=== PATIENT | male | born 1970 | race Caucasian/White ===

== ENCOUNTER 2018-05-03 22:09 | Observation (INO) ==
--- NOTE | 2018-05-03 23:01 | ED ---
HPI General Chief Complaint: Chest Pain Stated Complaint: swollen legs, feet and a sore Time Seen by Provider: 05/03/18 22:38 History of Present Illness HPI Narrative: Patient is a 48-year-old male who is coming in saying he is been living in his car he is having worsening edema in both his legs bilaterally he is a chronic situation he is to see Dr. Padron but he is run out of insurance and has not been able to see . for over a year he is morbidly obese with severe edematous legs possibly adipose tissue as well as lymphedema possibly peripheral vascular disease due to the obesity of his legs and his abdomen compressing his veins he now is complaining of a right distal tibia ulcer that is started his legs are chronically weeping he says and they itch so much that he scratched and made a hole and now it is ulcerating and severely painful Related Data Home Medications Medication Instructions Recorded Confirmed No Known Home Medications 05/04/18 05/04/18 Previous Rx's Medication Instructions Recorded albuterol sulfate [Ventolin HFA] 2 puff INH Q4H PRN #1 inhaler 05/06/18 budesonide-formoterol [Symbicort] 1 puff INH BID #1 inhaler 05/06/18 cephalexin 500 mg PO Q8HR #18 cap 05/06/18 furosemide 20 mg PO DAILY #30 tab 05/06/18 gabapentin 100 mg PO TID #90 cap 05/06/18 Allergies Allergy/AdvReac Type Severity Reaction Status Date / Time No Known Allergies Uncoded 08/18/10 16:35 Review of Systems ROS: all other systems reviewed are negative [facility] Social History Social History Substance History: No History of Abuse Second Hand Smoke Exposure: Yes Smoking Status: Light tobacco smoker Tobacco Type: Cigarettes How Often Do You Have a Drink Containing Alcohol: Monthly or less Immunization History Tetanus Immunization: Unsure Exam Narrative Exam Narrative: GENERAL: morbid obesity abdo and lower extremites bilateral SKIN: Warm and dry.skin erosion of his right distal tibial anterior serrano 7 cm area oozing serous fluid HEAD: Atraumatic. Normocephalic. EYES: Pupils equal and round. No scleral icterus. No injection or drainage. ENT: No nasal bleeding or discharge. Mucous membranes pink and moist. NECK: Trachea midline. No JVD. CARDIOVASCULAR: Regular rate and rhythm. RESPIRATORY: No accessory muscle use. Clear to auscultation. Breath sounds equal bilaterally. GASTROINTESTINAL: Abdomen morbidly obese MUSCULOSKELETAL: Extremities obese edema to lower legs with 7 cm erosion to distal leg oozing transudate . NEUROLOGICAL: Awake and alert. No obvious cranial nerve deficits. Motor grossly within normal limits. Five out of 5 muscle strength in the arms and legs. Normal speech. PSYCHIATRIC: Appropriate mood and affect; insight and judgment normal. Course Initial Documented Vital Signs Temperature 97.4 F L 05/03/18 22:18 Pulse Rate 78 05/03/18 22:18 Respiratory Rate 24 05/03/18 22:18 Blood Pressure 167/97 H 05/03/18 22:18 Pulse Oximetry 98 05/03/18 22:18 Last Documented Vital Signs Temperature 97.6 F 05/06/18 09:18 Pulse Rate 80 05/06/18 09:18 Respiratory Rate 18 05/06/18 09:18 Blood Pressure 133/96 H 05/06/18 09:18 Pulse Oximetry 99 05/06/18 09:18 Medical Decision Making MDM Narrative Medical decision making narrative: pt has 7 cm erosion with erythema and cellultis to lower right leg admit for iv antibiotics and wound culture Medical Screen Exam Complete: Yes Emergency Medical Condition: Yes Differential Diagnosis Differential Diagnosis: chronic edema with transudate weeping across legs vs edema of PVD vs cellulitis vs otehr Lab Data Result diagrams: 05/05/18 06:10 05/05/18 06:10 Lab Results 05/03/18 05/03/18 05/03/18 Range/Units 23:47 23:47 23:47 WBC 8.9 (4.0-11.0) th/mm3 RBC 5.07 (4.50-5.90) mil/mm3 Hgb 15.3 (13.0-17.0) gm/dL Hct 44.9 (39.0-51.0) % MCV 88.5 (80.0-100.0) fL MCH 30.1 (27.0-34.0) pg MCHC 34.1 (32.0-36.0) % RDW 14.7 (11.6-17.2) % Plt Count 253 (150-450) th/mm3 MPV 8.9 (7.0-11.0) fL Neut % (Auto) 68.4 (16.0-70.0) % Lymph % (Auto) 16.1 (9.0-44.0) % Dawson % (Auto) 9.1 H (0.0-8.0) % Eos % (Auto) 5.7 H (0.0-4.0) % Baso % (Auto) 0.7 (0.0-2.0) % Neut # (Auto) 6.1 (1.8-7.7) th/mm3 Lymph # (Auto) 1.4 (1.0-4.8) th/mm3 Dawson # (Auto) 0.8 (0.0-0.9) th/mm3 Eos # (Auto) 0.5 H (0.0-0.4) th/mm3 Baso # (Auto) 0.1 (0.0-0.2) th/mm3 WBC Differential . Differential Comment Auto diff final Sodium 131 L (136-145) meq/L Potassium 3.2 L (3.5-5.1) meq/L Chloride 93 L (98-107) meq/L Carbon Dioxide 29.7 (21.0-32.0) meq/L Anion Gap 8 (5-15) meq/L BUN 17 (7-18) mg/dL Creatinine 1.05 (0.60-1.30) mg/dL Estimated GFR 76 L (>89) mL/min Random Glucose 114 H (74-106) mg/dL Hemoglobin A1c (4.3-6.0) % Lactic Acid 1.2 (0.4-2.0) mmol/L Calcium 8.3 L (8.5-10.1) mg/dL Magnesium (1.5-2.5) mg/dL Total Bilirubin 0.5 (0.2-1.0) mg/dL AST 27 (15-37) U/L ALT 30 (12-78) U/L Alkaline Phosphatase 110 (45-117) U/L Total Protein 7.4 (6.4-8.2) g/dL Albumin 3.4 (3.4-5.0) g/dL 05/05/18 05/05/18 05/05/18 Range/Units 06:10 06:10 06:12 WBC 5.8 (4.0-11.0) th/mm3 RBC 5.13 (4.50-5.90) mil/mm3 Hgb 15.3 (13.0-17.0) gm/dL Hct 45.5 (39.0-51.0) % MCV 88.7 (80.0-100.0) fL MCH 29.7 (27.0-34.0) pg MCHC 33.5 (32.0-36.0) % RDW 14.5 (11.6-17.2) % Plt Count 220 (150-450) th/mm3 MPV 9.1 (7.0-11.0) fL Neut % (Auto) 66.7 (16.0-70.0) % Lymph % (Auto) 16.3 (9.0-44.0) % Dawson % (Auto) 9.9 H (0.0-8.0) % Eos % (Auto) 6.2 H (0.0-4.0) % Baso % (Auto) 0.9 (0.0-2.0) % Neut # (Auto) 3.9 (1.8-7.7) th/mm3 Lymph # (Auto) 0.9 L (1.0-4.8) th/mm3 Dawson # (Auto) 0.6 (0.0-0.9) th/mm3 Eos # (Auto) 0.4 (0.0-0.4) th/mm3 Baso # (Auto) 0.1 (0.0-0.2) th/mm3 WBC Differential . Differential Comment Auto diff final Sodium 134 L (136-145) meq/L Potassium 3.3 L (3.5-5.1) meq/L Chloride 95 L (98-107) meq/L Carbon Dioxide 29.5 (21.0-32.0) meq/L Anion Gap 10 (5-15) meq/L BUN 11 (7-18) mg/dL Creatinine 0.80 (0.60-1.30) mg/dL Estimated GFR Greater than 89 (>89) mL/min Random Glucose 93 (74-106) mg/dL Hemoglobin A1c 5.4 (4.3-6.0) % Lactic Acid (0.4-2.0) mmol/L Calcium 8.7 (8.5-10.1) mg/dL Magnesium 2.0 (1.5-2.5) mg/dL Total Bilirubin (0.2-1.0) mg/dL AST (15-37) U/L ALT (12-78) U/L Alkaline Phosphatase (45-117) U/L Total Protein (6.4-8.2) g/dL Albumin (3.4-5.0) g/dL Imaging Data Radiologist's impression: Venous Doppler Study 05/03/18 22:46 CONCLUSION: No evidence of deep venous thrombosis. Discharge Plan Discharge Disposition Patient Disposition: 30 Still Patient Discharge Condition Condition: Good Discharge Order Discharge Orders: Discharge Order (Routine); Ordered 05/06/18 Ordered By: Mono Hong Discharge Details Diagnosis: Abscess or cellulitis of ankle Physicians Team ED Provider: Chemo Carmen Primary Care Provider: Primary Care Maria Elena Espinosa Attending Provider: Mono Hong Status ED Status: Left Department Discharge Information Discharge Date/Time: 05/04/18 06:02
--- NOTE | 2018-05-03 23:59 | US ---
EXAM DATE: 05/03/2018 10:46 PM EDT AGE/SEX: 48 years / Male INDICATIONS: Bilateral leg pain and swelling. CLINICAL DATA: This is the patient's initial encounter. Patient reports that signs and symptoms have been present for 4 - 6 months and indicates a pain score of 6/10. MEDICAL/SURGICAL HISTORY: Chronic obstructive pulmonary disease. None. COMPARISON: No prior exams available for comparison. TECHNIQUE: Venous ultrasound of both lower extremities was performed from the inguinal ligament to t he proximal calf. Real-time, color Doppler and spectral tracing, compression and augmentation techni ques were used. FINDINGS: Right Leg: Normal compression of the deep venous system from the inguinal region to the proximal ronnie f. No echogenic clot is seen. Normal response of the venous system to augmentation and respiration. Left Leg: Normal compression of the deep venous system from the inguinal region to the proximal calf . No echogenic clot is seen. Normal response of the venous system to augmentation and respiration. Other: None. CONCLUSION: No evidence of deep venous thrombosis. Electronically signed by: Albert Mann MD 05/03/2018 11:58 PM EDT
[2018-05-04 00:06] LABS: Baso # (Auto) 0.1 th/mm3 (0.0-0.2); Baso % (Auto) 0.7 % (0.0-2.0); Eos # (Auto) 0.5 th/mm3 (0.0-0.4); Eos % (Auto) 5.7 % (0.0-4.0); Hematocrit 44.9 % (39.0-51.0); Hemoglobin 15.3 gm/dL (13.0-17.0); Lymph # (Auto) 1.4 th/mm3 (1.0-4.8); Lymph % (Auto) 16.1 % (9.0-44.0); Mean Corpuscular HGB Conc 34.1 % (32.0-36.0); Mean Corpuscular Hemoglobin 30.1 pg (27.0-34.0); Mean Corpuscular Volume 88.5 fL (80.0-100.0); Mean Platelet Volume 8.9 fL (7.0-11.0); Mono # (Auto) 0.8 th/mm3 (0.0-0.9); Mono % (Auto) 9.1 % (0.0-8.0); Neut # (Auto) 6.1 th/mm3 (1.8-7.7); Neut % (Auto) 68.4 % (16.0-70.0); Platelet Count 253 th/mm3 (150-450); Red Blood Count 5.07 mil/mm3 (4.50-5.90); Red Cell Distribution Width 14.7 % (11.6-17.2); White Blood Count 8.9 th/mm3 (4.0-11.0)
[2018-05-04 00:20] LABS: Alanine Aminotransferase 30 U/L (12-78); Alkaline Phosphatase 110 U/L (45-117); Total Protein 7.4 g/dL (6.4-8.2)
[2018-05-04 00:23] LABS: Albumin 3.4 g/dL (3.4-5.0); Anion Gap 8 meq/L (5-15); Aspartate Aminotransferase 27 U/L (15-37); Blood Urea Nitrogen 17 mg/dL (7-18); Calcium 8.3 mg/dL (8.5-10.1); Carbon Dioxide 29.7 meq/L (21.0-32.0); Chloride 93 meq/L (98-107); Glomerular Filtration Rate 76 mL/min (>89); Glucose,Random 114 mg/dL (74-106); Sodium 131 meq/L (136-145)
[2018-05-04 00:24] LABS: Potassium 3.2 meq/L (3.5-5.1)
[2018-05-04] MEDS ORDERED: Ketorolac Inj 30 MG/ML (IVP) Vial IV.PUSH ONE (00:35)
[2018-05-04] MEDS ORDERED: ceFAZolin 2 GM Premix Inj 2 GM/50 ML PIGGYBACK IV.SIG ONE (03:15)
[2018-05-04] MEDS ORDERED: Diphtheria/Tetanus/Pertussis Vaccine Inj 0.5 ML Syringe IM ONE (03:16)
[2018-05-04] MEDS ORDERED: Acetaminophen 325 MG Tablet PO PRN (04:35)
[2018-05-04] MEDS: Heparin - SQ 10,000 UNITS/ML Vial SQ SCH ×2 (05:04→18:44)
--- NOTE | 2018-05-04 16:30 | P.PNWCN ---
Wound Care Nurse Consult Description: Recived wound management consult from Tomas[facility]SHINE Communicated with: MEGAN Delcid CDU and Doctor Recommendation: Change dressing as follows every 3 days or PRN if saturated or dislodged: After removing dressing, Apply lidocaine ointment to wound and leave ointment in place for ~5 minutes. Then cleanse wound to RLE with wound cleanser and pat dry. Apply Optifoam AG covering entire wound and secure with ABD pad ,rolled gauze and elastic wrap. Wound/Pressure Injury - Patient Status Premedicated for Pain Prior to Dressing Change: No - Wound Right Lower Leg Wound Assessment: Ongoing Wound Type: Traumatic Wound Requested from Provider a Wound Care Consult: Yes (Wound care saw patient today) Length (cm): 13 (~13cm) Width (cm): 22 (~22cm) Depth (cm): 0.1 (~<0.1cm) Wound Bed Appearance: Red Wound Bed Appearance: 100% red non granulation tissue. Periwound presents with hyperkeratotic tissue, dried yellow/brown exudate and scattered partial thickness wounds. Surrounding Tissue Temperature: Warm Drainage Description: Serosanguinous Drainage Amount: Scant Drainage Odor: Slight Odor Dressing Status: Changed Cleansing Solution: Saline Primary Dressing: Optifoam AG Cover Dressing: ABD pad Wound Dressing Change Date: 05/04/18 Wound Margin Description: Wound margins are poorly defined and open - Additional Information Patient seen for wound management of wound to RLE. Upon machine sign writer's arrival patient is laying in bed and appears morbidly obese. Patinet is ambulatory and Alert and oriented x 4. Bilateral lower extremities present with hard non pitting edema worse on R lower leg than on the L. Removed saturated dressing to R lower leg to reveal open wound to R lower leg. Wound description and measurement are noted above. Periwound presents with hyperkeratotic tissue, scaly dry skin and dried brown/ yellow exudate. Applied shaving cream to BLE for dry scaly skin and applied warm moist towel over bilateral lower legs and left in place for ~5 minutes before rinsing and removing shaving cream. Wound to R lower leg was cleansed with normal saline and patted dry. Applied 3 Optifoam AG non adhesive dressings to R lower leg wound, and secured with ABD pad, rolled gauze, tape and elastic wrap. Patient has pain after dressing change and wound assessment. MEGAN kimball medicate patient for pain.
[2018-05-04] MEDS ORDERED: Naloxone Inj 0.4 MG/ML Vial IV.PUSH PRN (16:45)
[2018-05-04] MEDS ORDERED: Lidocaine 5% Oint 37 GM Tube TOPICAL PRN (16:51)
--- NOTE | 2018-05-04 17:33 | P.HP ---
History of Present Illness Service: Hospitalist Primary Care Physician: No Primary Care Physician Chief Complaint: Leg wound History of Present Illness: Patient is a 48-year-old male who presented to the emergency room after developing worsening edema in his lower legs which led to an ulcer from excessive scratching on the right serrano. He is homeless and lives in his van care. He does report a past medical history of COPD for which he took Symbicort at one time however he can no longer afford it. He tells me that the swelling in his legs has been for most of his life and that it is worse right now because he is forced to sleep sitting up in a chair in his van. He is also complaining of pins and needles feeling in his feet. Tells me that he caused the ulcer scratching through his jeans and did not even realize it. Currently denies any shortness of breath or chest pain. No nausea vomiting or diarrhea. - Diagnosis (1) Venous stasis ulcer (2) Neuropathy (3) PVD (peripheral vascular disease) (4) COPD (chronic obstructive pulmonary disease) (5) Abscess or cellulitis of ankle Review of Systems All other systems reviewed negative except as stated in [facility]PI [facility] - History History Provided By: Patient, Medical Record - Medical History Medical History: Medical History (Last Updated 05/04/18 @ 17:39 by JONG Connell) Elbow fracture, left (Resolved) Acquired lymphedema of lower extremity COPD (chronic obstructive pulmonary disease) Kidney calculus - Family History Family History: Family History (Last Reviewed 05/04/18 @ 17:37 by JONG Connell) Mother Diabetes Father Cancer - Social History I have reviewed the patient's Social History: Yes - Tobacco History Second Hand Smoke Exposure: Yes Tobacco Use In Past 30 Days: Yes Smoking Status: Light tobacco smoker Tobacco Type: Cigarettes - Alcohol History How Often Do You Have a Drink Containing Alcohol: Monthly or less - Substance Use History Substance History: No History of Abuse - Travel History Recent Travel in the [place] Within the Last 8 Weeks: No Recent Travel Out of the Country Within the Last 8 Weeks: No - Immunization History Tetanus Immunization: Unsure Medications and Allergies Active Medications: Active Medications Acetaminophen (Tylenol) 650 mg PO Q4H PRN PRN Reason: Temp > 100.4 Hydrocodone Bitart/Acetaminophen (Flinton 5/325) 1 tab PO Q4H PRN PRN Reason: PAIN SCALE 3 TO 5 Last Admin: 05/04/18 17:04 Dose: 1 tab Budesonide/Formoterol Fumarate (Symbicort 80/4.5 Mcg Inh) 1 puff INH BID [facility] Furosemide (Lasix) 40 mg PO DAILY [facility] Gabapentin (Neurontin) 100 mg PO TID [facility] Heparin Sodium (Porcine) (Heparin Inj) 5,000 units SQ Q12H CHARMAINE Last Admin: 05/04/18 05:04 Dose: 5,000 units Cefazolin Sodium 1,000 mg/ (Sodium Chloride) 100 mls @ 200 mls/hr IV.SIG Q8H [facility] Last Infusion: 05/04/18 13:45 Dose: Infused Lidocaine HCl (Xylocaine 5% Oint) 1 applicatio TOPICAL Q8H PRN PRN Reason: Acute Pain Naloxone HCl (Narcan Inj) 0.4 mg IV.PUSH UNSCH PRN PRN Reason: SEE LABEL COMMENTS Ondansetron HCl (Zofran Inj) 4 mg IV.PUSH Q6H PRN PRN Reason: NAUSEA OR VOMITING Potassium Chloride (Kcl) 10 meq PO DAILY [facility] Allergies Allergy/AdvReac Type Severity Reaction Status Date / Time No Known Allergies Uncoded 08/18/10 16:35 Home Medications Medication Instructions Recorded Confirmed Type No Known Home Medications 05/04/18 05/04/18 History Exam Vital signs: Vital Signs 05/03/18 22:18 05/04/18 02:20 05/04/18 06:29 Temperature 97.4 F L 98.5 F Pulse Rate 78 65 60 Respiratory Rate 24 18 20 Blood Pressure 167/97 H 123/68 123/80 Pulse Oximetry 98 98 99 05/04/18 07:31 05/04/18 12:00 05/04/18 16:00 Temperature 98.1 F 98.2 F Pulse Rate 57 L 55 L 71 Respiratory Rate 18 20 20 Blood Pressure 136/73 143/69 H 142/102 H Pulse Oximetry 99 100 100 Intake & Output 05/03/18 05/04/18 05/04/18 18:59 06:59 18:59 Intake Total 50 / 50 100 / 100 Balance 50 / 50 100 / 100 Weight 181.437 kg 181.437 kg Intake: IV 50 / 50 100 / 100 Ancef 2 GM Premix Inj 2 gm In 50 / 50 50 ml @ 100 mls/hr IV.SIG ONCE ONE Rx#:[id number] Ancef Inj 1,000 MG In NS Inj 100 / 100 100 ML @ 200 mls/hr IV.SIG Q8H [facility] Rx#:[id number] Other: Date of Last Bowel Movement 05/03/18 Weight On Admission 181.437 kg Narrative: GENERAL: Obese, well-developed adult male in no obvious distress. SKIN: Warm and dry. Ulcer on right serrano that is draining serosanguineous fluid. Darkened, thick skin bilateral lower legs. HEAD: Atraumatic. Normocephalic. CARDIOVASCULAR: Regular rate and rhythm. RESPIRATORY: No accessory muscle use. Clear to auscultation. Breath sounds equal bilaterally. GASTROINTESTINAL: Abdomen soft, non-tender, non-distended. Positive bowel sounds. MUSCULOSKELETAL: Bilateral lower legs with significant edema from knee to toes + 3. No obvious deformities. NEUROLOGICAL: Awake and alert. No obvious cranial nerve deficits. Motor grossly within normal limits. Normal speech. PSYCHIATRIC: Appropriate mood and affect; insight and judgment good. Results - Labs CBC & Chem 7: 05/03/18 23:47 05/03/18 23:47 Labs: Laboratory Results - last 24 hr 05/03/18 05/03/18 05/03/18 23:47 23:47 23:47 WBC 8.9 RBC 5.07 Hgb 15.3 Hct 44.9 MCV 88.5 MCH 30.1 MCHC 34.1 RDW 14.7 Plt Count 253 MPV 8.9 Neut % (Auto) 68.4 Lymph % (Auto) 16.1 Coal % (Auto) 9.1 H Eos % (Auto) 5.7 H Baso % (Auto) 0.7 Neut # (Auto) 6.1 Lymph # (Auto) 1.4 Coal # (Auto) 0.8 Eos # (Auto) 0.5 H Baso # (Auto) 0.1 WBC Differential . Differential Comment Auto diff final Sodium 131 L Potassium 3.2 L Chloride 93 L Carbon Dioxide 29.7 Anion Gap 8 BUN 17 Creatinine 1.05 Estimated GFR 76 L Random Glucose 114 H Lactic Acid 1.2 Calcium 8.3 L Total Bilirubin 0.5 AST 27 ALT 30 Alkaline Phosphatase 110 Total Protein 7.4 Albumin 3.4 - Imaging Impressions Venous Doppler Study 05/03/18 22:46 CONCLUSION: No evidence of deep venous thrombosis. Caprini VTE Risk Assessment Caprini VTE Risk Assessment: Moderate/High Risk (score >= 2) Caprini Risk Assessment Model: Point Value = 1 Point Value = 2 Point Value = 3 Point Value = 5 Age 41-60 Minor surgery BMI > 25 kg/m2 Swollen legs Varicose veins or History of unexplained or recurrent spontaneous Oral contraceptives or hormone replacement Sepsis (< 1 month) Serious lung disease, including pneumonia (< 1 month) Abnormal pulmonary function Acute myocardial infarction Congestive heart failure (< 1 month) History of inflammatory bowel disease Medical patient at bed rest Age 61-74 Arthroscopic surgery Major open surgery (> 45 min) Laparoscopic surgery (> 45 min) Malignancy Confined to bed (> 72 hours) Immobilizing plaster cast Central venous access Age >= 75 History of VTE Family history of VTE Factor V Leiden Prothrombin [id number] Lupus anticoagulant Anticardiolipin antibodies Elevated serum homocysteine Heparin-induced thrombocytopenia Other congenital or acquired thrombophilia Stroke (< 1 month) Elective arthroplasty Hip, pelvis, or leg fracture Acute spinal cord injury (< 1 month) Prophylaxis Regimen: Total Risk Factor Score Risk Level Prophylaxis Regimen 0-1 Low Early ambulation 2 Moderate Order ONE of the following: *Sequential Compression Device (SCD) *Heparin 5000 units SQ BID 3-4 Higher Order ONE of the following medications: *Heparin 5000 units SQ TID *Enoxaparin/Lovenox 40 mg SQ daily (WT < 150 kg, CrCl > 30 mL/min) *Enoxaparin/Lovenox 30 mg SQ daily (WT < 150 kg, CrCl > 10-29 mL/min) *Enoxaparin/Lovenox 30 mg SQ BID (WT < 150 kg, CrCl > 30 mL/min) AND/OR *Sequential Compression Device (SCD) 5 or more Highest Order ONE of the following medications: *Heparin 5000 units SQ TID (Preferred with Epidurals) *Enoxaparin/Lovenox 40 mg SQ daily (WT < 150 kg, CrCl > 30 mL/min) *Enoxaparin/Lovenox 30 mg SQ daily (WT < 150 kg, CrCl > 10-29 mL/min) *Enoxaparin/Lovenox 30 mg SQ BID (WT < 150 kg, CrCl > 30 mL/min) AND *Sequential Compression Device (SCD) Assessment and Plan - Assessment (1) Venous stasis ulcer Code(s): I83.009 - Varicose veins of unspecified lower extremity with ulcer of unspecified site; L97.909 - Non-pressure chronic ulcer of unspecified part of unspecified lower leg with unspecified severity Status: Acute (2) Neuropathy Code(s): G62.9 - Polyneuropathy, unspecified Status: Chronic (3) PVD (peripheral vascular disease) Code(s): I73.9 - Peripheral vascular disease, unspecified Status: Chronic (4) COPD (chronic obstructive pulmonary disease) Code(s): J44.9 - Chronic obstructive pulmonary disease, unspecified Status: Chronic (5) Abscess or cellulitis of ankle Status: Acute - Plan 48-year-old male who is currently homeless. Presents to the ED with increasing swelling in his feet and a wound to the right serrano. Past medical history includes chronic edema and COPD. Venous stasis ulcer -Wound care consulted -Continue cefazolin started in ED -Monitor cultures Chronic edema/lymphedema -Lasix plus potassium supplement; monitor kidney function and electrolytes COPD -Symbicort -As needed nebs Neuropathy -Trial gabapentin 100 mg 3 times daily. Increase if not adequate. -Denies history of diabetes, but will check A1c Hypokalemia -K initially 3.2-got 40 M EQ's replacement. Recheck in a.m. DVT prophylaxis: Heparin Discharge planning: Patient has no benefits; appreciate case management assistance Acute pain exception: This patient has normal, predicted, physiological, and time limited response to an adverse mechanical stimulus associated with surgery , trauma, or acute illness as described in my notes. There is a lack of alternative treatment options other than to include the prescribed narcotic treatment for this condition.
[2018-05-04] MEDS: Gabapentin 100 MG Capsule PO SCH (18:44)
[2018-05-04] MEDS: Budesonide-Formoterol 80/4.5 MCG 6.9 GM Inhaler INH SCH (22:18)
[2018-05-05] MEDS: Heparin - SQ 10,000 UNITS/ML Vial SQ SCH ×2 (06:00→18:19)
[2018-05-05 07:42] LABS: Baso # (Auto) 0.1 th/mm3 (0.0-0.2); Baso % (Auto) 0.9 % (0.0-2.0); Eos # (Auto) 0.4 th/mm3 (0.0-0.4); Eos % (Auto) 6.2 % (0.0-4.0); Hematocrit 45.5 % (39.0-51.0); Hemoglobin 15.3 gm/dL (13.0-17.0); Lymph # (Auto) 0.9 th/mm3 (1.0-4.8); Lymph % (Auto) 16.3 % (9.0-44.0); Mean Corpuscular HGB Conc 33.5 % (32.0-36.0); Mean Corpuscular Hemoglobin 29.7 pg (27.0-34.0); Mean Corpuscular Volume 88.7 fL (80.0-100.0); Mean Platelet Volume 9.1 fL (7.0-11.0); Mono # (Auto) 0.6 th/mm3 (0.0-0.9); Mono % (Auto) 9.9 % (0.0-8.0); Neut # (Auto) 3.9 th/mm3 (1.8-7.7); Neut % (Auto) 66.7 % (16.0-70.0); Platelet Count 220 th/mm3 (150-450); Red Blood Count 5.13 mil/mm3 (4.50-5.90); Red Cell Distribution Width 14.5 % (11.6-17.2); White Blood Count 5.8 th/mm3 (4.0-11.0)
[2018-05-05 08:11] LABS: Anion Gap 10 meq/L (5-15); Calcium 8.7 mg/dL (8.5-10.1); Carbon Dioxide 29.5 meq/L (21.0-32.0); Chloride 95 meq/L (98-107); Glucose,Random 93 mg/dL (74-106); Potassium 3.3 meq/L (3.5-5.1); Sodium 134 meq/L (136-145)
[2018-05-05 08:20] LABS: Blood Urea Nitrogen 11 mg/dL (7-18); Glomerular Filtration Rate Greater Than 89 mL/min (>89)
[2018-05-05] MEDS: Potassium Chloride 10 MEQ ER Capsule PO SCH (08:45)
[2018-05-05] MEDS: Gabapentin 100 MG Capsule PO SCH ×3 (08:45→18:19)
[2018-05-05] MEDS: Budesonide-Formoterol 80/4.5 MCG 6.9 GM Inhaler INH SCH ×2 (08:57→20:06)
[2018-05-05] MEDS ORDERED: Furosemide 40 MG Tablet PO SCH (09:00)
[2018-05-05] MEDS ORDERED: Sodium Chloride 0.9% 2 ML Flush PRN IV.FLUSH (12:20)
[2018-05-05 17:26] LABS: Hemoglobin A1c 5.4 % (4.3-6.0)
--- NOTE | 2018-05-05 17:54 | P.PNIM ---
Subjective Interval history: Patient complains of right lower extremity pain mostly near the right anteromedial serrano where he has an ulceration. He does not have any other complaints. Physical Exam Vital signs: Vital Signs 05/04/18 20:00 05/05/18 04:00 05/05/18 08:00 Temperature 98.4 F 98.3 F 98.1 F Pulse Rate 73 57 L 66 Respiratory Rate 20 20 12 Blood Pressure 117/77 134/63 111/68 Pulse Oximetry 97 100 98 05/05/18 12:00 05/05/18 15:56 Temperature 97.5 F L 97.4 F L Pulse Rate 65 65 Respiratory Rate 12 12 Blood Pressure 134/76 111/69 Pulse Oximetry 97 99 Intake & Output 05/04/18 05/05/18 05/05/18 18:59 06:59 18:59 Intake Total 100 / 100 1140 / 1140 100 / 100 Balance 100 / 100 1140 / 1140 100 / 100 Weight 181.437 kg 181.44 kg Intake: IV 100 / 100 200 / 200 100 / 100 Ancef Inj 1,000 MG In NS Inj 100 / 100 200 / 200 100 / 100 100 ML @ 200 mls/hr IV.SIG Q8H CHARMAINE Rx#:[id number] Oral 940 / 940 Other: # Voids 6 2 Date of Last Bowel Movement 05/04/18 05/04/18 Weight On Admission 181.437 kg Narrative: General patient complains of right lower extremity pain near the staci-medial right serrano. He also has some tingling sensation in both of his feet. HEENT extraocular movements are intact, clear oropharyngeal mucosa, no JVD Cardiovascular S1-S2 audible, RRR, no murmurs rubs or gallops Respiratory clear to auscultation bilaterally Abdomen obese, nontender, normal bowel sounds Extremities 1-2+ pitting edema bilateral lower extremities up to the shins. Right staci-medial serrano ulceration currently in a bandage. Neuro no neurological deficits Results - Labs CBC & Chem 7: 05/05/18 06:10 05/05/18 06:10 Laboratory Results - last 24 hr 05/05/18 05/05/18 06:10 06:10 WBC 5.8 RBC 5.13 Hgb 15.3 Hct 45.5 MCV 88.7 MCH 29.7 MCHC 33.5 RDW 14.5 Plt Count 220 MPV 9.1 Neut % (Auto) 66.7 Lymph % (Auto) 16.3 [place]well % (Auto) 9.9 H Eos % (Auto) 6.2 H Baso % (Auto) 0.9 Neut # (Auto) 3.9 Lymph # (Auto) 0.9 L [place]well # (Auto) 0.6 Eos # (Auto) 0.4 Baso # (Auto) 0.1 WBC Differential . Differential Comment Auto diff final Sodium 134 L Potassium 3.3 L Chloride 95 L Carbon Dioxide 29.5 Anion Gap 10 BUN 11 Creatinine 0.80 Estimated GFR Greater than 89 Random Glucose 93 Calcium 8.7 Magnesium 2.0 Microbiology 05/04/18 03:40 Wound - Ankle Gram Stain - Final 05/04/18 03:40 Wound - Ankle Wound Culture - Preliminary Pseudomonas species Staphylococcus aureus 05/03/18 23:47 Blood - Peripheral Aerobic Blood Culture - Preliminary No growth in 2 days 05/03/18 23:47 Blood - Peripheral Anaerobic Blood Culture - Preliminary No growth in 2 days 05/03/18 23:15 Blood - Peripheral Aerobic Blood Culture - Preliminary No growth in 2 days 05/03/18 23:15 Blood - Peripheral Anaerobic Blood Culture - Preliminary No growth in 2 days Assessment and Plan - Assessment (1) Venous stasis ulcer Code(s): I83.009 - Varicose veins of unspecified lower extremity with ulcer of unspecified site; L97.909 - Non-pressure chronic ulcer of unspecified part of unspecified lower leg with unspecified severity Status: Acute (2) Neuropathy Code(s): G62.9 - Polyneuropathy, unspecified Status: Chronic (3) PVD (peripheral vascular disease) Code(s): I73.9 - Peripheral vascular disease, unspecified Status: Chronic (4) COPD (chronic obstructive pulmonary disease) Code(s): J44.9 - Chronic obstructive pulmonary disease, unspecified Status: Chronic (5) Abscess or cellulitis of ankle Status: Acute - Plan This patient is a 48-year-old obese homeless male who presented to our emergency department with complaints of worsening bilateral lower extremity edema and an ulceration on the right staci-medial serrano. The patient has poor hygiene due to currently being homeless and lives in his van. He noticed that the right lower extremity cellulitis and ulceration were getting worse and he came into the emergency department for evaluation. 1. Right lower extremity cellulitis with venous stasis ulcer. Patient is currently on IV antibiotics Wound care was consulted and is treating the patient's venous stasis ulcer. Cultures will be followed up. Patient will likely be discharged tomorrow with p.o. antibiotics. 2. Bilateral lower extremity edema Patient was given some Lasix and his legs were elevated. There is some improvement the patient's lower extremity edema. An ultrasound of the lower extremities was done which does not show any DVT. 3. Peripheral neuropathy Patient was started on gabapentin 100 mg 3 times a day. He says that he has had some improvement in his neuropathy. Continue the current dosage, will adjust if needed. No history of diabetes, hemoglobin A1c ordered pending. 4. COPD Patient is currently on room air without any complaints of shortness of breath. As per the patient he was previously on albuterol and Symbicort however because of insurance reasons and being homeless he has not been on the medications. Continue albuterol as needed and Symbicort twice daily. 4. Hypokalemia Electro lites were replaced. Heparin for DVT prophylaxis. Patient will likely be discharged tomorrow a.m.
[2018-05-05] MEDS: Sodium Chloride 0.9% 2 ML Flush BID IV.FLUSH SCH (20:04)
[2018-05-06 00:33] VITALS: TEMP 97.6
[2018-05-06] MEDS: Heparin - SQ 10,000 UNITS/ML Vial SQ SCH (06:11)
[2018-05-06] MEDS ORDERED: Furosemide 20 MG Tablet PO SCH (09:00)
[2018-05-06 09:18] VITALS: BP 133/96; PULSE 80; RESP 18; O2SAT 99
[2018-05-06] MEDS: Potassium Chloride 10 MEQ ER Capsule PO SCH (09:30)
[2018-05-06] MEDS: Gabapentin 100 MG Capsule PO SCH (09:30)
[2018-05-06] MEDS: Budesonide-Formoterol 80/4.5 MCG 6.9 GM Inhaler INH SCH (09:34)
[2018-05-06] MEDS: Sodium Chloride 0.9% 2 ML Flush BID IV.FLUSH SCH (09:34)
== END 2018-05-06 10:51 | disposition home or self-care (01) ==
LOC: NEPE 22:09 → NEDA 22:09 → NEPGCP 05-04 06:27
PROVIDERS: ADMIT Hospitalist; ATTEND Hospitalist